=== PATIENT | female | born 1960 | race Caucasian/White ===

== ENCOUNTER 2020-11-05 16:27 | Emergency (ER) | payer BC, OTHER ==
--- NOTE | 2020-11-05 16:59 | EDM.PDOC ---
ED HPI GENERAL MEDICAL PROBLEM - General Chief Complaint: Chemical Exposure Stated Complaint: CHEMICAL BURN LEFT LEG/RIGHT FOOT Time Seen by Provider: 11/05/20 16:50 Source of Information: Reports: Patient History Limitations: Reports: No Limitations - History of Present Illness INITIAL COMMENTS - FREE TEXT/NARRATIVE: 60-year-old female who works at [employer] and was working with nitric acid and she was trying to fill a container and she reports that the pump was not working properly confident that pump was not working properly as well but she had some in a container and she was taking the container over to the sink to empty it and the nitric acid and the container drained out and onto her left thigh and onto her right foot. This occurred approximately 3:30 to 4 PM today. She reports that she irrigated the area copiously with water and then noted that she was still having some burning in the area but it was mild. She rated the burning as a 2/10 and that is been pretty consistent she came to the emergency department for evaluation. There has been no nausea or vomiting. She did not ingest any of this. She has normal sensation in her feet. No difficulty breathing. No cough. There are no other associated signs or symptoms. There are no other modifying factors. 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: Reports: Other (see below) (Nothing.) Left Thigh Pain Score (Numeric/FACES): 2 - Related Data Allergies Allergy/AdvReac Type Severity Reaction Status Date / Time No Known Allergies Allergy Verified 11/05/20 17:30 Past Medical History Cardiovascular History: Reports: Heart Valve Replacement, Other (See Below) Gastrointestinal History: Reports: GERD - Past Surgical History Cardiovascular Surgical History: Reports: Valve Replacement (Porcine mitral valve replacement) GI Surgical History: Reports: EGD, Nurys Fundoplication Social & Family History - Tobacco Use Tobacco Use Status *Q: Unknown Ever Used Tobacco (Nonsmoker.) - Alcohol Use Alcohol Use History: No - Living Situation & Occupation Occupation: Employed (Works at [employer]) ED ROS GENERAL - Review of Systems Review Of Systems: See Below Constitutional: Denies: Malaise, Diaphoresis HEENT: Denies: Throat Pain, Throat Swelling Respiratory: Denies: Shortness of Breath, Cough Cardiovascular: Denies: Chest Pain, Palpitations GI/Abdominal: Denies: Abdominal Pain, Nausea, Vomiting : Denies: Frequency, Hematuria, Urgency Musculoskeletal: Reports: Leg Pain. Denies: Back Pain Skin: Reports: Burn(s) (Chemical burn to the left thigh. Anterior and lateral. Approximately 4% TBSA) Neurological: Denies: Dizziness, Headache Hematologic/Lymphatic: Denies: Easy Bleeding, Easy Bruising Immunologic: Reports: Other (It has been greater than 5 years since her last tetanus immunization.) ED EXAM, BURN/SMOKE INHALATION - Physical Exam Exam: See Below Exam Limited By: No Limitations General Appearance: Alert, Mild Distress, Obese, Other (Nontoxic appearing) Eye Exam: Bilateral Eye: EOMI, Normal Inspection, PERRL Ears (Abbreviated): Normal External Exam, Hearing Grossly Normal Mouth/Throat: No Symptoms Reported, Other (Moist mucous membranes). No: Pharyngeal Erythema Head: Atraumatic, Normocephalic Neck: Normal, Supple, Non-Tender to Palpation, Full Range of Motion, Trachea Midline Respiratory: No Respiratory Distress, Lungs Clear, Normal Breath Sounds, No Accessory Muscle Use, Chest Non-Tender Cardiovascular: Normal Peripheral Pulses, Regular Rate, Rhythm, No Murmur Peripheral Pulses: 2+: Radial (L), Radial (R), Dorsalis Pedis (L), Dorsalis Pedis (R) GI/Abdominal: Normal Bowel Sounds, Soft, Non-Tender, No Mass Back Exam: Normal Inspection, Full Range of Motion Extremities: Normal Range of Motion, No Pedal Edema, Normal Capillary Refill Neurological: Alert, Oriented, CN II-XII Intact, Normal Cognition, No Motor/Sensory Deficits Psychiatric: Normal Affect Skin Exam: Warm, Dry, No Rash, Wound/Incision (Chemical burn to the anterior left thigh and lateral left thigh. There is about 4% total body first area burn. There are small areas on the top of the right foot that is less than 1% TBSA.) Course - Vital Signs Last Recorded V/S: Last Vital Signs Temp 35.8 C L 11/05/20 16:38 Pulse 84 11/05/20 16:38 Resp 16 11/05/20 16:38 BP 138/91 H 11/05/20 16:38 Pulse Ox 98 11/05/20 16:38 - Orders/Labs/Meds Meds: Medications Discontinued Medications Generic Name Dose Route Start Last Admin Trade Name Osbaldo PRN Reason Stop Dose Admin Bacitracin 7 dose 11/05/20 17:30 11/05/20 17:50 Bacitracin Oint 1 Gm U/D Packet TOP 11/05/20 17:31 7 dose ONETIME ONE Administration Diphtheria/Tetanus/Acell Pertussis 0.5 ml 11/05/20 17:30 11/05/20 17:50 Diphtheria,Pertussis(Acell),Tetanus Vaccine 0.5 Ml Syringe IM 11/05/20 17:31 0.5 ml .ONCE ONE Administration - Re-Assessments/Exams Free Text/Narrative Re-Assessment/Exam: 11/05/20 17:25: I discussed the patient's case with the [place] [facility] and they did not feel that there was given be any systemic toxicities related to the nitric acid burn. The burn itself appears to be superficial partial- thickness burn that is 3-4% total body surface area. The patient is having minimal pain. We have irrigated it copiously with sterile water and used Hibiclens to clean. We will apply bacitracin ointment and sterile dressing and she will need to follow-up with her primary provider tomorrow for recheck of the wound. This was all discussed with the patient and she feels comfortable with this plan. The patient will be given a Tdap Immunization as well to bring her tetanus immunization status up-to-date. Departure - Departure Time of Disposition: 17:40 Disposition: Home, Self-Care 01 Condition: Good Clinical Impression: Chemical burn Toxic effect of nitric acid Qualifiers: Encounter type: initial encounter Injury intent: accidental or unintentional Qualified Code(s): T54.2X1A - Toxic effect of corrosive acids and acid-like substances, accidental (unintentional), initial encounter Chemical burn of right thigh Qualifiers: Encounter type: initial encounter Corrosion degree: second degree Qualified Code(s): T24.611A - Corrosion of second degree of right thigh, initial encounter - Discharge Information Instructions: Chemical Burn, Adult, [id number] Referrals: Roxanne Michelle NP [Primary Care Provider] - Forms: ED Department Discharge Additional Instructions: Wash the wound with plenty of water and mild soap twice daily and apply ba citracin ointment (she can pick this up [id number] at any drugstore or discount store) and a sterile dressing. Use ibuprofen 600 mg by mouth 3 times a day for the next few days and then as needed for pain. Increase your fluid intake. You will need to follow-up with your primary provider tomorrow for a wound recheck. No work until cleared by your primary provider. You were given a Tdap Immunization today to bring your tetanus immunization status up-to-date. We did discuss your case with [place] [facility] and they did not feel that there would be any toxic systemic effects from the nitric acid exposure. The burn area appears to be a partial-thickness burn and should heal well with the treatment prescribed. Back to the emergency department for marked increase in pain, spreading redness, fever or any other concerning signs or symptoms. Sepsis Event Note (ED) - Evaluation Sepsis Screening Result: No Definite Risk
[2020-11-05] MEDS ORDERED: Diphtheria,Pertussis(Acell),Tetanus Vaccine 0.5 ML Syringe IM ONE (17:30)
[2020-11-05] MEDS ORDERED: Bacitracin Oint 1 GM U/D Packet TOP ONE (17:30)
== END 2020-11-05 17:59 | disposition home or self-care (01) ==
LOC: FB.ED 16:27
DX: T54.2X1A Toxic effect of corrosive acids and acid-like substances, accidental (unintentional), initial encounter (principal); T24.611A Corrosion of second degree of right thigh, initial encounter; T32.0 Corrosions involving less than 10% of body surface; Z23 Encounter for immunization; Y99.0 Civilian activity done for income or pay
CPT/HCPCS: 90471; 90715; 99283